=== PATIENT | female | born 1960 | race Hispanic/Latino ===

== ENCOUNTER 2019-01-02 19:49 | Emergency (ER) | payer SELFPAY ==
[2019-01-02] MEDS ORDERED: CARDIZEM IV ONE (20:05)
[2019-01-02] MEDS ORDERED: CARDIZEM ONE (20:06)
--- NOTE | 2019-01-02 20:11 | Procedure Note ---
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
--- NOTE | 2019-01-02 20:28 | Emergency Department Report ---
HPI - General Chief Complaint: Dyspnea/Respdistress Time Seen by Provider: 01/02/19 20:06 - HPI HPI: Room 22 The patient is a 4-year-old female presents with a chief complaint of altered mental status. The patient was reportedly found unresponsive in her car parked in a parking lot. The patient was seen by another physician for this is Dr. Pham) in the emergency department upon arrival. He reports the patient had a GCS of 4 and was tachycardic with a heart rate greater than 190. Patient was intubated by Dr. Pham prior to my evaluation. The patient was administered diltiazem for the heart rate prior to my evaluation and now has a heart rate of approximately 110-120 Location: [See above] Duration: [See above] Quality: [See above] Severity: [See above] Timing: [See above] Context: [See above] Modifying factors: [See above] Associated signs and symptoms: [see above] ED Past Medical Hx - Past Medical History Additional medical history: Atrial fibrillation - Surgical History Past Surgical History?: No - Family History Family history: no significant - Social History Smoking Status: Unknown if ever smoked - Medications Home Medications: Home Medications Medication Instructions Recorded Confirmed Last Taken Type Unobtainable 01/02/19 01/02/19 Unknown History ED Review of Systems ROS: Stated complaint: UNRESPONSIVE Other details as noted in HPI Comment: Unobtainable due to pts medical conditions Physical Exam - Physical Exam Physical Exam: GENERAL: The patient is well-developed well-nourished female lying on stretcher intubated and unresponsive. [] HEENT: Normocephalic. Atraumatic. Pupils 3-2 mm bilaterally. Small amount of blood present at the lips NECK: Trachea midline CHEST/LUNGS: Clear to auscultation. Breath sounds equal bilaterally HEART/CARDIOVASCULAR: Irregularly irregular. There is tachycardia. There is no gallop rub or murmur. ABDOMEN: Abdomen is soft, nontender. Patient has normal bowel sounds. There is no abdominal distention. SKIN: There is no rash. There is no edema. There is no diaphoresis. NEURO: GCS 3T MUSCULOSKELETAL: There is no evidence of acute injury. 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 Recommends aspirin while awaiting embolectomy 01/03/19 00:26 [place] transfer line called- will contact physician and call back 01/03/19 00:[address] Page 01/03/19 00:50 Will accept patient in transfer to [place] neuro ICU. Please arrange transport by helicopter and change Versed to propofol ED Medical Decision Making - Lab Data Result diagrams: 01/02/19 20:33 01/02/19 20:33 Laboratory Tests 01/02/19 01/02/19 01/02/19 20:33 20:33 20:33 WBC 13.0 H RBC 4.99 Hgb 15.4 H Hct 47.2 H MCV 95 MCH 31 MCHC 33 RDW 15.3 H Plt Count 263 Lymph % (Auto) 9.3 L [place] % (Auto) 5.0 Eos % (Auto) 0.1 Baso % (Auto) 0.3 Lymph # 1.2 [place] # 0.6 Eos # 0.0 Baso # 0.0 Seg Neutrophils % 85.3 H Seg Neutrophils # 11.1 H PT 15.7 H INR 1.28 H APTT 26.9 Thrombin Time POC ABG pH POC ABG pCO2 POC ABG pO2 POC ABG HCO3 POC ABG Total CO2 POC ABG O2 Sat POC ABG Base Excess FiO2 Sodium 137 Potassium 3.8 Chloride 98.9 Carbon Dioxide 25 Anion Gap 17 BUN 15 Creatinine 1.2 Estimated GFR 46 BUN/Creatinine Ratio 13 Glucose 194 H Lactic Acid Calcium 9.2 Magnesium Total Bilirubin Direct Bilirubin Indirect Bilirubin AST ALT Alkaline Phosphatase Ammonia Troponin T 0.032 H Total Protein Albumin Albumin/Globulin Ratio Triglycerides 130 Cholesterol 200 H LDL Cholesterol Direct 152 H HDL Cholesterol 47 Cholesterol/HDL Ratio 4.25 TSH Free T4 Urine Color Urine Turbidity Urine pH Ur Specific [place] Urine Protein Urine Glucose (UA) Urine Ketones Urine Blood Urine Nitrite Urine Bilirubin Urine Urobilinogen Ur Leukocyte Esterase Urine WBC (Auto) Urine RBC (Auto) U Epithel Cells (Auto) Calcium Oxalate Crystal Urine Mucus Salicylates Urine Opiates Screen Urine Methadone Screen Acetaminophen Ur Barbiturates Screen Ur Phencyclidine Scrn Ur Amphetamines Screen U Benzodiazepines Scrn Urine Cocaine Screen U Marijuana (THC) Screen Drugs of Abuse Note Plasma/Serum Alcohol Blood Type Antibody Screen 01/02/19 01/02/19 01/02/19 20:33 20:33 20:33 WBC RBC Hgb Hct MCV MCH MCHC RDW Plt Count Lymph % (Auto) [place] % (Auto) Eos % (Auto) Baso % (Auto) Lymph # [place] # Eos # Baso # Seg Neutrophils % Seg Neutrophils # PT INR APTT Thrombin Time 17.1 POC ABG pH POC ABG pCO2 POC ABG pO2 POC ABG HCO3 POC ABG Total CO2 POC ABG O2 Sat POC ABG Base Excess FiO2 Sodium Potassium Chloride Carbon Dioxide Anion Gap BUN Creatinine Estimated GFR BUN/Creatinine Ratio Glucose Lactic Acid 2.30 H* Calcium Magnesium Total Bilirubin 1.00 Direct Bilirubin 0.3 H Indirect Bilirubin 0.7 AST 23 ALT 18 Alkaline Phosphatase 89 Ammonia Troponin T Total Protein 7.0 Albumin 4.2 Albumin/Globulin Ratio 1.5 Triglycerides Cholesterol LDL Cholesterol Direct HDL Cholesterol Cholesterol/HDL Ratio TSH Free T4 Urine Color Urine Turbidity Urine pH Ur Specific [place] Urine Protein Urine Glucose (UA) Urine Ketones Urine Blood Urine Nitrite Urine Bilirubin Urine Urobilinogen Ur Leukocyte Esterase Urine WBC (Auto) Urine RBC (Auto) U Epithel Cells (Auto) Calcium Oxalate Crystal Urine Mucus Salicylates Urine Opiates Screen Urine Methadone Screen Acetaminophen Ur Barbiturates Screen Ur Phencyclidine Scrn Ur Amphetamines Screen U Benzodiazepines Scrn Urine Cocaine Screen U Marijuana (THC) Screen Drugs of Abuse Note Plasma/Serum Alcohol Blood Type Antibody Screen 01/02/19 01/02/19 01/02/19 20:33 20:33 20:33 WBC RBC Hgb Hct MCV MCH MCHC RDW Plt Count Lymph % (Auto) [place] % (Auto) Eos % (Auto) Baso % (Auto) Lymph # [place] # Eos # Baso # Seg Neutrophils % Seg Neutrophils # PT INR APTT Thrombin Time POC ABG pH POC ABG pCO2 POC ABG pO2 POC ABG HCO3 POC ABG Total CO2 POC ABG O2 Sat POC ABG Base Excess FiO2 Sodium Potassium Chloride Carbon Dioxide Anion Gap BUN Creatinine Estimated GFR BUN/Creatinine Ratio Glucose Lactic Acid Calcium Magnesium 1.70 Total Bilirubin Direct Bilirubin Indirect Bilirubin AST ALT Alkaline Phosphatase Ammonia 55.0 Troponin T Total Protein Albumin Albumin/Globulin Ratio Triglycerides Cholesterol LDL Cholesterol Direct HDL Cholesterol Cholesterol/HDL Ratio TSH 0.646 Free T4 1.16 Urine Color Urine Turbidity Urine pH Ur Specific [place] Urine Protein Urine Glucose (UA) Urine Ketones Urine Blood Urine Nitrite Urine Bilirubin Urine Urobilinogen Ur Leukocyte Esterase Urine WBC (Auto) Urine RBC (Auto) U Epithel Cells (Auto) Calcium Oxalate Crystal Urine Mucus Salicylates Urine Opiates Screen Urine Methadone Screen Acetaminophen Ur Barbiturates Screen Ur Phencyclidine Scrn Ur Amphetamines Screen U Benzodiazepines Scrn Urine Cocaine Screen U Marijuana (THC) Screen Drugs of Abuse Note Plasma/Serum Alcohol Blood Type Antibody Screen 01/02/19 01/02/19 01/02/19 20:47 20:49 20:49 WBC RBC Hgb Hct MCV MCH MCHC RDW Plt Count Lymph % (Auto) [place] % (Auto) Eos % (Auto) Baso % (Auto) Lymph # [place] # Eos # Baso # Seg Neutrophils % Seg Neutrophils # PT INR APTT Thrombin Time POC ABG pH POC ABG pCO2 POC ABG pO2 POC ABG HCO3 POC ABG Total CO2 POC ABG O2 Sat POC ABG Base Excess FiO2 Sodium Potassium Chloride Carbon Dioxide Anion Gap BUN Creatinine Estimated GFR BUN/Creatinine Ratio Glucose Lactic Acid Calcium Magnesium Total Bilirubin Direct Bilirubin Indirect Bilirubin AST ALT Alkaline Phosphatase Ammonia Troponin T Total Protein Albumin Albumin/Globulin Ratio Triglycerides Cholesterol LDL Cholesterol Direct HDL Cholesterol Cholesterol/HDL Ratio TSH Free T4 Urine Color Urine Turbidity Urine pH Ur Specific [place] Urine Protein Urine Glucose (UA) Urine Ketones Urine Blood Urine Nitrite Urine Bilirubin Urine Urobilinogen Ur Leukocyte Esterase Urine WBC (Auto) Urine RBC (Auto) U Epithel Cells (Auto) Calcium Oxalate Crystal Urine Mucus Salicylates < 0.3 L Urine Opiates Screen Urine Methadone Screen Acetaminophen < 5.0 L Ur Barbiturates Screen Ur Phencyclidine Scrn Ur Amphetamines Screen U Benzodiazepines Scrn Urine Cocaine Screen U Marijuana (THC) Screen Drugs of Abuse Note Plasma/Serum Alcohol Blood Type A POSITIVE Antibody Screen Negative 01/02/19 01/02/19 01/02/19 20:49 21:35 23:10 WBC RBC Hgb Hct MCV MCH MCHC RDW Plt Count Lymph % (Auto) [place] % (Auto) Eos % (Auto) Baso % (Auto) Lymph # [place] # Eos # Baso # Seg Neutrophils % Seg Neutrophils # PT INR APTT Thrombin Time POC ABG pH 7.461 H POC ABG pCO2 37.5 POC ABG pO2 130 H POC ABG HCO3 26.7 POC ABG Total CO2 28 POC ABG O2 Sat 99 POC ABG Base Excess 3 FiO2 100 Sodium Potassium Chloride Carbon Dioxide Anion Gap BUN Creatinine Estimated GFR BUN/Creatinine Ratio Glucose Lactic Acid Calcium Magnesium Total Bilirubin Direct Bilirubin Indirect Bilirubin AST ALT Alkaline Phosphatase Ammonia Troponin T Total Protein Albumin Albumin/Globulin Ratio Triglycerides Cholesterol LDL Cholesterol Direct HDL Cholesterol Cholesterol/HDL Ratio TSH Free T4 Urine Color Yellow Urine Turbidity Clear Urine pH 6.0 Ur Specific [place] 1.029 Urine Protein 100 mg/dl Urine Glucose (UA) Neg Urine Ketones Neg Urine Blood Neg Urine Nitrite Neg Urine Bilirubin Neg Urine Urobilinogen < 2.0 Ur Leukocyte Esterase Neg Urine WBC (Auto) 2.0 Urine RBC (Auto) 3.0 U Epithel Cells (Auto) 2.0 Calcium Oxalate Crystal Few Urine Mucus Few Salicylates Urine Opiates Screen Urine Methadone Screen Acetaminophen Ur Barbiturates Screen Ur Phencyclidine Scrn Ur Amphetamines Screen U Benzodiazepines Scrn Urine Cocaine Screen U Marijuana (THC) Screen Drugs of Abuse Note Plasma/Serum Alcohol < 0.01 Blood Type Antibody Screen 01/02/19 23:10 WBC RBC Hgb Hct MCV MCH MCHC RDW Plt Count Lymph % (Auto) [place] % (Auto) Eos % (Auto) Baso % (Auto) Lymph # [place] # Eos # Baso # Seg Neutrophils % Seg Neutrophils # PT INR APTT Thrombin Time POC ABG pH POC ABG pCO2 POC ABG pO2 POC ABG HCO3 POC ABG Total CO2 POC ABG O2 Sat POC ABG Base Excess FiO2 Sodium Potassium Chloride Carbon Dioxide Anion Gap BUN Creatinine Estimated GFR BUN/Creatinine Ratio Glucose Lactic Acid Calcium Magnesium Total Bilirubin Direct Bilirubin Indirect Bilirubin AST ALT Alkaline Phosphatase Ammonia Troponin T Total Protein Albumin Albumin/Globulin Ratio Triglycerides Cholesterol LDL Cholesterol Direct HDL Cholesterol Cholesterol/HDL Ratio TSH Free T4 Urine Color Urine Turbidity Urine pH Ur Specific [place] Urine Protein Urine Glucose (UA) Urine Ketones Urine Blood Urine Nitrite Urine Bilirubin Urine Urobilinogen Ur Leukocyte Esterase Urine WBC (Auto) Urine RBC (Auto) U Epithel Cells (Auto) Calcium Oxalate Crystal Urine Mucus Salicylates Urine Opiates Screen Presumptive negative Urine Methadone Screen Presumptive negative Acetaminophen Ur Barbiturates Screen Presumptive negative Ur Phencyclidine Scrn Presumptive negative Ur Amphetamines Screen Presumptive negative U Benzodiazepines Scrn Presumptive negative Urine Cocaine Screen Presumptive negative U Marijuana (THC) Screen Presumptive negative Drugs of Abuse Note Disclamer Plasma/Serum Alcohol Blood Type Antibody Screen - EKG Data -: EKG Interpreted by La Rate: normal - EKG Data When compared to previous EKG there are: previous EKG unavailable Interpretation: nonspecific ST-T wave fang (T-wave inversions in leads V2, V3 discordance), other (A. fib at 70 bpm.) - Radiology Data Radiology results: report reviewed (CT head, chest x-ray, CT brain, CTA neck), image reviewed (CT head, chest x-ray, CT brain, CTA neck) interpreted by me: Chest x-ray-ET tube in appropriate position, pulmonary edema [address] [address] XRay Report Signed Patient: AMANUEL JOLLEY MR#: [id number] : 1960 Acct:[id number] Age/Sex: 58 / F ADM Date: 01/02/19 Loc: ED Attending Dr: Ordering Physician: KAT PHAM MD Date of Service: 01/02/19 Procedure(s): XR chest 1V ap Accession Number(s): [id number] cc: KAT PHAM MD Fluoro Time In Minutes: CHEST 1 VIEW INDICATION / CLINICAL INFORMATION: intubation. COMPARISON: 07/20/2012 FINDINGS: SUPPORT DEVICES: Endotracheal tube is seen in good position in the distal trachea above the atilio. HEART / MEDIASTINUM: Moderately enlarged but stable. LUNGS / PLEURA: There is developing bilateral lung consolidation predominantly central in location suggesting developing cardiogenic edema. No pneumothorax. ADDITIONAL FINDINGS: No significant additional findings. IMPRESSION: 1 I suspect early pulmonary edema. Endotracheal tube appears to be in good position. Signer Name: Edilberto Beaulieu MD Signed: 01/02/2019 9:21 PM Workstation Name: [id number] Transcribed By: Dictated By: Edilberto Beaulieu MD Electronically Authenticated By: Edilberto Beaulieu MD Signed Date/Time: 01/02/192120 DD/ 18 TD/TT: [address] [address] Cat Scan Report Signed Patient: AMANUEL JOLLEY MR#: [id number] : 1960 Acct:[id number] Age/Sex: 58 / F ADM Date: 01/02/19 Loc: ED Attending Dr: Ordering Physician: SOFY MARTINS MD Date of Service: 01/02/19 Procedure(s): CT angio head Accession Number(s): [id number] cc: SOFY MARTINS MD CTA head with intravenous contrast CLINICAL HISTORY: Patient with atrial f ibrillation segments with unresponsiveness. Respiratory failure. Ventilator patient. TECHNIQUE: 0.625 mm thick contiguous axial scans were obtained from the skull base to the skull vertex during rapid bolus administration of intravenous contrast material. Multiplanar reconstructions were produced in the coronal and sagittal planes. In addition 3 plane MIP instructions were produced and reviewed for this report. The axial source images and reconstructed images were reviewed for this report. All CT scans at this location are performed using CT dose reduction for ALARA by means of automated exposure control. FINDINGS: There is a filling defect at the distal basilar artery extending into the posterior cerebral arteries bilaterally. This is compatible with a basilar tip thromboembolism producing high-grade obstruction to the distal basilar artery and proximal posterior cerebral arteries. This may affect the origin of the left superior cerebellar artery as well. The caliber of the anterior circulation intracranial vessels is normal throughout. There is no indication of intracranial stenosis or large vessel occlusion along the course of the internal carotid arteries or their branches.. There is no indication of vasculitis. There is no evidence of aneurysm or other vascular malformation. IMPRESSION: 1. Thromboembolic lesion producing high-grade obstruction to the distal basilar artery and proximal posterior cerebral arteries. Critical result: Time of discovery: 2310 Central daylight time. Notification I discussed the findings of this study with Dr. Saldivar of the [facility] emergency department at about 1117 Central daylight time. Study was performed at about 2210 Central daylight time. I first received notification that this study had been performed at the time of shift change in the CT department when the incoming techn ologist called me at 2305 Central daylight time. The reason for this delay is unknown to me. CONTRAST DOSE REPORT: Omnipaque 350: 60 ml administered intravenously. Signer Name: Kb Warner MD Signed: 01/03/2019 12:29 AM Workstation Name: [id number] Transcribed By: Dictated By: Kb Warner MD Electronically Authenticated By: Kb Warner MD Signed Date/Time: 01/03/19 0029 DD/ 0012 TD/TT: [address] [address] Cat Scan Report Signed Patient: AMANUEL JOLLEY MR#: [id number] : 1960 Acct:[id number] Age/Sex: 58 / F ADM Date: 01/02/19 Loc: ED Attending Dr: Ordering Physician: KAT PHAM MD Date of Service: 01/02/19 Procedure(s): CT head/brain wo con Accession Number(s): [id number] cc: KAT PHAM MD CT HEAD WITHOUT CONTRAST INDICATION / CLINICAL INFORMATION: Unresponsive patient. Code stroke patient. Respiratory failure. Ventilator dependent patient. TECHNIQUE: All CT scans at this location are performed using CT dose reduction for ALARA by means of automated exposure control. COMPARISON: None available. FINDINGS: HEMORRHAGE: No evidence of intracranial hemorrhage or extra-axial fluid collection. EXTRA-AXIAL SPACES: Cortical sulci, sylvian fissures and basilar cisterns have an unremarkable appearance. VENTRICULAR SYSTEM: The ventricular system is of normal size and configuration. CEREBRAL PARENCHYMA: An area of decreased attenuation in the white matter of the left frontal lobe may reflect microvascular ischemic change or encephalomalacia secondary to remote deep white matter infarction. No additional areas of abnormal brain parenchymal attenuation are identified. There is no indication of recent infarction. MIDLINE SHIFT OR HERNIATION: There is no mass effect. CEREBELLUM / BRAINSTEM: Brainstem and cerebellum have an unremarkable appearance. INTRACRANIAL VESSELS:No abnormalities are identified on this noncontrast head CT. ORBITS: visualized portions of the orbits have an un remarkable appearance. SOFT TISSUES of HEAD: No significant abnormality. CALVARIUM: Evaluation of bone windows reveals no abnormalities. PARANASAL SINUSES / MASTOID AIR CELLS: Paranasal sinuses are free from inflammatory mucosal disease. Mastoid air cells are normally pneumatized. IMPRESSION: 1. No acute intracranial abnormality. Code stroke: I called report of this study to Dr. Martins at about 1940 central standard time. Study had been on the neuroradiology work list for less than 8 minutes prior to this communication. Signer Name: Kb Warner MD Signed: 01/02/2019 8:42 PM Workstation Name: [id number] Transcribed By: Dictated By: Kb Warner MD Electronically Authenticated By: Kb Warner MD Signed Date/Time: 01/02/192041 DD/ 37 TD/TT: [facility] [address] [place] [address] Cat Scan Report Signed Patient: AMANUEL JOLLEY MR#: [id number] : 1960 Acct:[id number] Age/Sex: 58 / F ADM Date: 01/02/19 Loc: ED Attending Dr: Ordering Physician: SOFY MARTINS MD Date of Service: 01/02/19 Procedure(s): CT angio neck Accession Number(s): [id number] cc: SOFY MARTINS MD CTA neck with intravenous contrast material. CLINICAL HISTORY: Atrial fibrillation patient presents with unresponsiveness and respiratory failure. Ventilator dependent patient. TECHNIQUE: Following acquisition of a timing bolus 0.63 mm thick contiguous axial scans were obtained from aortic arch to the skull base du ring rapid bolus intravenous contrast infusion. In addition to evaluation of axial source images multiplanar reconstructions were produced and reviewed for this report. 3 plane MIP reconstructions were produced and reviewed for this report. All CT scans at this location are performed using CT dose reduction for ScreachTVRA by means of automated exposure control. FINDINGS: Please refer to CTA head report for description of a basilar tip and bilateral posterior cerebral artery thromboembolic lesion. No abnormalities are seen at the origins of the great vessels. Common carotid arteries, carotid bifurcations and cervical portions of the internal carotid arteries all have a normal appearance. There is no indication of hemodynamically significant stenosis. Normal and symmetrical vertebral arteries are present. There is no indication of stenosis along the course of the vertebral arteries. Both vertebral arteries contribute to the basilar artery origin. Please refer to CTA head report for description of a basilar tip and bilateral posterior cerebral artery thromboembolic lesion. The degree of stenosis, if any, is determined utilizing NASCET like criteria. In this case there is no indication of hemodynamically significant stenosis at the carotid bifurcations. There is a thromboembolus at the distal basilar artery with extension into the P1 segments of both posterior cerebral arteries. Please refer to CTA head report. The lung apices are remarkable for the presence of bilateral parenchymal infiltrates versus atelectasis versus dependent density in the posterior (dependent) margins of both upper lobes. Evaluation of the nonvascular soft tissue structures reveal no additional abnormality. There is no indication of cervical lymphadenopathy. No abnormalities are seen along the course of the airway. Visualized portions of the parotid glands and the submandibular salivary glands have a normal appearance. Thyroid gland has a normal appearance. Evaluation of the cervical spine revealed widespread cervical spondylosis associated with multifocal neuroforaminal stenosis. Central spinal canal remains adequate in size. IMPRESSION: 1. Please refer to CTA head report for description of a distal basilar artery and bilateral proximal posterior cerebral artery thromboembolic lesion. 2. No indication of hemodynamically significant stenosis or large vessel occlusion is observed in the neck. Contrast dose report: Omnipaque 350: 60 mL administered intravenously. All CT examinations performed at this facility utilize modulated dose reduction, iterative reconstruction or weight-based dosing, as appropriate, to obtain a radiation dose which is as low as can reasonably be achieved. Signer Name: Kb Warner MD Signed: 01/03/2019 12:39 AM Workstation Name: [id number] Transcribed By: Dictated By: Kb Warner MD Electronically Authenticated By: Kb Warner MD Signed Date/Time: 01/03/19 0039 DD/ TD/TT: - Differential Diagnosis ICH, CVA Critical Care Time: Yes Critical care time in (mins) excluding proc time.: 60 Critical care attestation.: If time is entered above; I have spent that time in minutes in the direct care of this critically ill patient, excluding procedure time. ED Disposition Clinical Impression: CVA (cerebral vascular accident), Basilar artery thrombosis, Atrial fibrillation with RVR Disposition: DC/TX-70 ANOTHER TYPE HLTHCARE Is pt being admited?: No Does the pt Need Aspirin: Yes Condition: Critical Referrals: PRIMARY CARE, [Primary Care Provider] - 3-5 Days Time of Disposition: 01:09 (awaiting transport)
--- NOTE | 2019-01-02 20:46 | Cat Scan Report ---
CT HEAD WITHOUT CONTRAST INDICATION / CLINICAL INFORMATION: Unresponsive patient. Code stroke patient. Respiratory failure. Ventilator dependent patient. TECHNIQUE: All CT scans at this location are performed using CT dose reduction for ALARA by means of automated e xposure control. COMPARISON: None available. FINDINGS: HEMORRHAGE: No evidence of intracranial hemorrhage or extra-axial fluid collection. EXTRA-AXIAL SPACES: Cortical sulci, sylvian fissures and basilar cisterns have an unremarkable appear ance. VENTRICULAR SYSTEM: The ventricular system is of normal size and configuration. CEREBRAL PARENCHYMA: An area of decreased attenuation in the white matter of the left frontal lobe ma y reflect microvascular ischemic change or encephalomalacia secondary to remote deep white matter inf arction. No additional areas of abnormal brain parenchymal attenuation are identified. There is no in dication of recent infarction. MIDLINE SHIFT OR HERNIATION: There is no mass effect. CEREBELLUM / BRAINSTEM: Brainstem and cerebellum have an unremarkable appearance. INTRACRANIAL VESSELS:No abnormalities are identified on this noncontrast head CT. ORBITS: visualized portions of the orbits have an unremarkable appearance. SOFT TISSUES of HEAD: No significant abnormality. CALVARIUM: Evaluation of bone windows reveals no abnormalities. PARANASAL SINUSES / MASTOID AIR CELLS: Paranasal sinuses are free from inflammatory mucosal disease. Mastoid air cells are normally pneumatized. IMPRESSION: 1. No acute intracranial abnormality. Code stroke: I called report of this study to Dr. Curry at about 1940 central standard time. Study had been on the neuroradiology work list for less than 8 minutes prior to this communication. Signer Name: Kb Warner MD Signed: 01/02/2019 8:42 PM Workstation Name: [id number]
[2019-01-02 20:55] LABS: Basophils % (Auto) 0.3 % (0.0-1.8); Eosinophils % (Auto) 0.1 % (0.0-4.3); Hematocrit 47.2 % (30.3-42.9); Hemoglobin 15.4 gm/dl (10.1-14.3); Lymphocytes # (Auto) 1.2 K/mm3 (1.2-5.4); Lymphocytes % (Auto) 9.3 % (13.4-35.0); Mean Corpuscular HGB Conc 33 % (30-34); Mean Corpuscular Volume 95 fl (79-97); Monocytes # (Auto) 0.6 K/mm3 (0.0-0.8); Platelet Count 263 K/mm3 (140-440); Red Blood Count 4.99 M/mm3 (3.65-5.03); Red Cell Distribution Width 15.3 % (13.2-15.2)
[2019-01-02] MEDS ORDERED: CARDIZEM/D5W 100MG/100ML 100 MG/100 ML BAG IV SCH (21:00)
[2019-01-02 21:06] LABS: INR 1.28 (0.87-1.13)
[2019-01-02 21:07] LABS: Partial Thromboplastin Time 26.9 Sec. (24.2-36.6)
[2019-01-02 21:13] LABS: Albumin 4.2 g/dL (3.9-5); Bilirubin,Direct 0.3 mg/dL (0-0.2)
[2019-01-02 21:18] LABS: Calcium 9.2 mg/dL (8.4-10.2)
[2019-01-02 21:23] LABS: Free T4 (Free Thyroxine) 1.16 ng/dL (0.76-1.46)
--- NOTE | 2019-01-02 21:25 | XRay Report ---
CHEST 1 VIEW INDICATION / CLINICAL INFORMATION: intubation. COMPARISON: 07/20/2012 FINDINGS: SUPPORT DEVICES: Endotracheal tube is seen in good position in the distal trachea above the atilio. HEART / MEDIASTINUM: Moderately enlarged but stable. LUNGS / PLEURA: There is developing bilateral lung consolidation predominantly central in location snow ggesting developing cardiogenic edema. No pneumothorax. ADDITIONAL FINDINGS: No significant additional findings. IMPRESSION: 1 I suspect early pulmonary edema. Endotracheal tube appears to be in good position. Signer Name: Edilberto Beaulieu MD Signed: 01/02/2019 9:21 PM Workstation Name: [id number]
[2019-01-02 21:41] LABS: Chol/HDL Ratio 4.25 %
[2019-01-02] MEDS ORDERED: ZEMURON IV ONE (22:05)
[2019-01-02] MEDS ORDERED: AMIDATE IV ONE (22:05)
[2019-01-02] MEDS ORDERED: ARTIFICIAL TEARS OPHTH OINT OU PRN (22:09)
[2019-01-02] MEDS ORDERED: VASELINE LIP THERAPY TP PRN (22:09)
[2019-01-02] MEDS ORDERED: VERSED IV PRN (22:09)
[2019-01-02] MEDS ORDERED: VERSED IV ONE (22:31)
[2019-01-02] MEDS ORDERED: MIDAZOLAM 100 MG in NACL 0.9% 80 ML IV SCH (23:00)
[2019-01-02 23:55] LABS: Bilirubin,Urine NEG (Negative); Blood,Urine NEG (Negative); Calcium Oxalate Crystals,Urine FEW; Color,Urine Yellow (Yellow); Mucus,Urine FEW /HPF; Urobilinogen,Urine < 2.0 mg/dL (<2.0)
[2019-01-02 23:57] LABS: Amphetamine Screen,Urine PRESUMPTIVE NEGATIVE; Benzodiazepines Screen,Urine PRESUMPTIVE NEGATIVE; Cannabinoid Screen,Urine PRESUMPTIVE NEGATIVE; Cocaine Screen,Urine PRESUMPTIVE NEGATIVE; Methadone Screen,Urine PRESUMPTIVE NEGATIVE; Opiate Screen,Urine PRESUMPTIVE NEGATIVE
--- NOTE | 2019-01-03 00:33 | Cat Scan Report ---
CTA head with intravenous contrast CLINICAL HISTORY: Patient with atrial fibrillation segments with unresponsiveness. Respiratory failure. Ventilator sabrina ent. TECHNIQUE: 0.625 mm thick contiguous axial scans were obtained from the skull base to the skull vertex during ra pid bolus administration of intravenous contrast material. Multiplanar reconstructions were produced in the coronal and sagittal planes. In addition 3 plane MIP instructions were produced and reviewed f or this report. The axial source images and reconstructed images were reviewed for this report. All CT scans at this location are performed using CT dose reduction for ALARA by means of automated e xposure control. FINDINGS: There is a filling defect at the distal basilar artery extending into the posterior cerebral arteries bilaterally. This is compatible with a basilar tip thromboembolism producing high-grade obstruction to the distal basilar artery and proximal posterior cerebral arteries. This may affect the origin of the left superior cerebellar artery as well. The caliber of the anterior circulation intracranial vessels is normal throughout. There is no indica tion of intracranial stenosis or large vessel occlusion along the course of the internal carotid margo reina or their branches.. There is no indication of vasculitis. There is no evidence of aneurysm or other vascular malformation. IMPRESSION: 1. Thromboembolic lesion producing high-grade obstruction to the distal basilar artery and proximal p osterior cerebral arteries. Critical result: Time of discovery: 2310 Central daylight time. Notification I discussed the findings of this study with Dr. Saldivar of the [facility] emergency department at about 1117 Central daylight time. Study was performed at about 2210 Central daylight time. I first received notification that this stud y had been performed at the time of shift change in the CT department when the incoming technologist called me at 2305 Central daylight time. The reason for this delay is unknown to me. CONTRAST DOSE REPORT: Omnipaque 350: 60 ml administered intravenously. Signer Name: Kb Warner MD Signed: 01/03/2019 12:29 AM Workstation Name: [id number]
--- NOTE | 2019-01-03 00:43 | Cat Scan Report ---
CTA neck with intravenous contrast material. CLINICAL HISTORY: Atrial fibrillation patient presents with unresponsiveness and respiratory failure. Ventilator depend ent patient. TECHNIQUE: Following acquisition of a timing bolus 0.63 mm thick contiguous axial scans were obtained from aorti c arch to the skull base during rapid bolus intravenous contrast infusion. In addition to evaluation of axial source images multiplanar reconstructions were produced and reviewed for this report. 3 plan e MIP reconstructions were produced and reviewed for this report. All CT scans at this location are performed using CT dose reduction for ALARA by means of automated e xposure control. FINDINGS: Please refer to CTA head report for description of a basilar tip and bilateral posterior cerebral art ratna thromboembolic lesion. No abnormalities are seen at the origins of the great vessels. Common carotid arteries, carotid bifurcations and cervical portions of the internal carotid arteries all have a normal appearance. There is no indication of hemodynamically significant stenosis. Normal and symmetrical vertebral arteries are present. There is no indication of stenosis along the c ourse of the vertebral arteries. Both vertebral arteries contribute to the basilar artery origin. Ple ase refer to CTA head report for description of a basilar tip and bilateral posterior cerebral artery thromboembolic lesion. The degree of stenosis, if any, is determined utilizing NASCET like criteria. In this case there is no indication of hemodynamically significant stenosis at the carotid bifurcations. There is a thrombo embolus at the distal basilar artery with extension into the P1 segments of both posterior cerebral a rteries. Please refer to CTA head report. The lung apices are remarkable for the presence of bilateral parenchymal infiltrates versus atelectas is versus dependent density in the posterior (dependent) margins of both upper lobes. Evaluation of the nonvascular soft tissue structures reveal no additional abnormality. There is no in dication of cervical lymphadenopathy. No abnormalities are seen along the course of the airway. Visua lized portions of the parotid glands and the submandibular salivary glands have a normal appearance. Thyroid gland has a normal appearance. Evaluation of the cervical spine revealed widespread cervical spondylosis associated with multifocal neuroforaminal stenosis. Central spinal canal remains adequate in size. IMPRESSION: 1. Please refer to CTA head report for description of a distal basilar artery and bilateral proximal posterior cerebral artery thromboembolic lesion. 2. No indication of hemodynamically significant stenosis or large vessel occlusion is observed in the neck. Contrast dose report: Omnipaque 350: 60 mL administered intravenously. All CT examinations performed at this facility utilize modulated dose reduction, iterative reconstruc tion or weight-based dosing, as appropriate, to obtain a radiation dose which is as low as can reason ably be achieved. Signer Name: Kb Warner MD Signed: 01/03/2019 12:39 AM Workstation Name: [id number]
[2019-01-03] MEDS ORDERED: ASPIRIN PO ONE (00:52)
[2019-01-03] MEDS ORDERED: DIPRIVAN 10 MG/ML 1,000 MG/100 ML BOTTLE IV SCH (01:00)
[2019-01-03] MEDS ORDERED: ASPIRIN PR ONE (01:17)
[2019-01-03 01:39] VITALS: BP 139/81
== END 2019-01-03 02:30 | disposition other institution (70) ==
LOC: ED 19:49
DX: I63.9 Cerebral infarction, unspecified (principal); I65.1 Occlusion and stenosis of basilar artery; I48.2 Chronic atrial fibrillation
CPT/HCPCS: 36415; 70450; 70496; 70498; 71045; 80048; 80061; 80076; 80307; 81001; 82140; 82803; 83735; 84439; 84443; 84484; 85025; 85610; 85670; 85730; 86850; 86900; 86901; 93005; 93010; 96365; 96366; 99291; J2250; J2704; Q9967; 80320; 94002; G0480